=== PATIENT | female | born 1940 | race Hispanic/Latino ===

== ENCOUNTER 2018-02-13 13:01 | Emergency (ER) | payer MEDICARE ==
[~2018-02-13 13:01] MED LIST: ACET250T3 PO; AEC81 PO; BRINOS OS; DOXY100C2 PO; LISI2.5T2 PO; METH-370 PO; METO25TA6 PO; POTA20TA12 PO; SIMV20TA6 PO; UBID100C10 PO; XALA2.5OS OS
[2018-02-13] MEDS ORDERED: ACETAMINOPHEN-CODEINE 300/30MG TAB ONE (14:52)
[2018-02-13] MEDS ORDERED: LIDOCAINE HCL 2% 20ML ONE (15:57)
[2018-02-25] MEDS ORDERED: CALC-190 PO (12:00)
[2018-02-25] MEDS ORDERED: IBUP-2353 PO (12:00)
[2018-02-25] MEDS ORDERED: LISI2.5T2 PO (12:00)
[2018-02-25] MEDS ORDERED: METH-370 PO (12:02)
[2018-02-25] MEDS ORDERED: METO25TA6 PO (12:02)
[2018-02-25] MEDS ORDERED: ASPI-1181 PO (12:02)
[2018-02-25] MEDS ORDERED: SIMV20TA6 PO (12:02)
[2018-02-25] MEDS ORDERED: XALA2.5OS OS (12:04)
[2018-02-25] MEDS ORDERED: UBID100C10 PO (12:04)
[2018-02-25] MEDS ORDERED: ACET-66 PO (12:04)
== END 2018-02-13 17:11 | disposition home or self-care (01) ==
LOC: EDH 13:01
DX: S62.101A Fracture of unspecified carpal bone, right wrist, initial encounter for closed fracture (principal); I10 Essential (primary) hypertension; E78.5 Hyperlipidemia, unspecified; W01.0XXA Fall on same level from slipping, tripping and stumbling without subsequent striking against object, initial encounter; Y93.89 Activity, other specified; Y92.098 Other place in other non-institutional residence as the place of occurrence of the external cause; Y99.8 Other external cause status
CPT/HCPCS: 25605; 73110 ×2; 99284; J3490

== ENCOUNTER 2018-09-20 00:04 | Emergency (ER) | payer MEDICARE ==
[~2018-09-20 00:04] MED LIST changes: +ACET-66 PO; -ACET250T3 PO; -AEC81 PO; +ASPI-1181 PO; -BRINOS OS; +CALC-190 PO; -DOXY100C2 PO; -POTA20TA12 PO
[2018-09-20] MEDS ORDERED: METOCLOPRAMIDE 10 MG/2 ML VIAL ONE (00:59)
[2018-09-20 01:18] LABS: BASOPHILS % (AUTO) 0.9 % (0.0-5.0); EOSINOPHILS % (AUTO) 4.4 % (0.0-8.0); HEMATOCRIT 43.5 % (36-48); LYMPHOCYTES % (AUTO) 25.5 % (21.0-51.0); MEAN CORPUSCULAR HEMOGLOBIN 29.6 pg (27.0-33.0); MEAN CORPUSCULAR HGB CONC 34.1 g/dL (32.0-36.0); MEAN CORPUSCULAR VOLUME 86.7 fL (79-99); MONOCYTES % (AUTO) 7.6 % (3.0-13.0); NEUTROPHILS % (AUTO) 61.6 % (40.0-77.0); NUCLEATED RED BLOOD CELLS 0.2 % (0.0-0.19); PLATELET COUNT (AUTO) 146 K/uL (130-400); RED BLOOD CELL COUNT(AUTO) 5.02 MIL/uL (4.00-5.50); RED CELL DISTRIBUTION WIDTH 14.2 % (11.0-15.5); WHITE BLOOD COUNT (AUTO) 5.7 K/uL (4.8-10.8)
[2018-09-20 01:29] LABS: CREATININE 0.8 mg/dL (0.5-1.5); POTASSIUM 3.7 mmol/L (3.5-5.1)
[2018-09-20 01:34] LABS: ALBUMIN 3.7 g/dL (3.5-5.0); BILIRUBIN,TOTAL 0.5 mg/dL (0.2-1.0); INR 1.02 (0.85-1.15); PROTHROMBIN TIME 10.7 SEC (9.6-11.6); TOTAL PROTEIN, SERUM 6.6 g/dL (6.0-8.3)
[2018-09-20 02:36] LABS: BILIRUBIN,URINE Negative (NEGATIVE); COLOR,URINE Yellow (YELLOW); GLUCOSE, URINE (UA) Negative (NEGATIVE); KETONES,URINE Negative (NEGATIVE); LEUKOCYTE ESTERASE ,URINE Moderate (NEGATIVE); NITRATE,URINE Negative (NEGATIVE); OCCULT BLOOD,URINE Negative (NEGATIVE); PH,URINE 6.5 (5.0-8.0); PROTEIN,URINE Negative (NEGATIVE)
[2018-09-20 02:37] LABS: APPEARANCE,URINE CLEAR (CLEAR)
[2018-09-20 02:43] LABS: BACTERIA,URINE None Seen /HPF (None Seen); RBC,URINE None Seen /HPF (0-1); SQUAMOUS EPITHELIAL CELL,UR Few /HPF (0-2); WBC,URINE 0-1 /HPF (0-1)
[2018-09-20] MEDS ORDERED: KETOROLAC TROMETHAMINE 15MG/ML ONE (03:16)
== END 2018-09-20 03:56 | disposition home or self-care (01) ==
LOC: EDH 00:04
DX: R51 Headache (principal); M62.838 Other muscle spasm; I10 Essential (primary) hypertension; E78.5 Hyperlipidemia, unspecified
CPT/HCPCS: 36415; 70450; 80053; 81001; 84484; 85025; 85610; 85730; 96374; 96375; 99284; J1885; J2765

== ENCOUNTER → 2019-03-05 | Outpatient (CLI) | payer MEDICARE | END | disposition home or self-care (01) | LOC: SHCH 09:38 | PROVIDERS: ATTEND Internal Medicine Cardiovascular Disease | DX: I08.0 Rheumatic disorders of both mitral and aortic valves (principal); I65.23 Occlusion and stenosis of bilateral carotid arteries; I10 Essential (primary) hypertension | CPT/HCPCS: 93306; 93880 ==

== ENCOUNTER → 2020-03-15 | Outpatient (CLI) | payer MEDICARE ==
[~2020-03-15] MED LIST changes: -ASPI-1181 PO; +ASPI-1443 PO; +SIMV-43 PO; -SIMV20TA6 PO
== END | disposition home or self-care (01) ==
LOC: SHCH 09:19
PROVIDERS: ATTEND Internal Medicine Cardiovascular Disease
DX: I25.10 Atherosclerotic heart disease of native coronary artery without angina pectoris (principal); I10 Essential (primary) hypertension
CPT/HCPCS: 93306; 93356

== ENCOUNTER → 2020-10-21 | Outpatient (CLI) | payer MEDICARE | END | disposition home or self-care (01) | LOC: SHCH 10:15 | PROVIDERS: ATTEND Internal Medicine Cardiovascular Disease | DX: I70.203 Unspecified atherosclerosis of native arteries of extremities, bilateral legs (principal) | CPT/HCPCS: 93925 ==

== ENCOUNTER → 2020-12-20 | Outpatient (CLI) | payer MEDICARE | END | disposition home or self-care (01) | LOC: SHCH 09:50 | PROVIDERS: ATTEND Internal Medicine Cardiovascular Disease | DX: I73.9 Peripheral vascular disease, unspecified (principal); I87.2 Venous insufficiency (chronic) (peripheral) | CPT/HCPCS: 93970 ==

== ENCOUNTER → 2021-08-15 | Outpatient (CLI) | payer MEDICARE ==
[~2021-08-15] MED LIST changes: +LISI2.5T13 PO; -LISI2.5T2 PO; -METH-370 PO; +METH-386 PO
== END | disposition home or self-care (01) ==
LOC: RAH 10:40
PROVIDERS: ATTEND Internal Medicine Gastroenterology
DX: K57.90 Diverticulosis of intestine, part unspecified, without perforation or abscess without bleeding (principal); D25.9 Leiomyoma of uterus, unspecified; I70.8 Atherosclerosis of other arteries; M47.815 Spondylosis without myelopathy or radiculopathy, thoracolumbar region; N85.2 Hypertrophy of uterus; N32.89 Other specified disorders of bladder; R63.4 Abnormal weight loss
CPT/HCPCS: 74176

== ENCOUNTER 2021-08-28 05:36 | Observation (INO) | payer MEDICARE ==
[2021-08-24 11:53] LABS: APPEARANCE,URINE Cloudy (CLEAR); BILIRUBIN,URINE Small (NEGATIVE); COLOR,URINE Dark Yellow (YELLOW); GLUCOSE, URINE (UA) Negative (NEGATIVE); KETONES,URINE Trace mg/dL (NEGATIVE); LEUKOCYTE ESTERASE ,URINE Small (NEGATIVE); NITRATE,URINE Negative (NEGATIVE); OCCULT BLOOD,URINE Negative (NEGATIVE); PROTEIN,URINE Trace mg/dL (NEGATIVE)
[2021-08-24 12:07] LABS: BACTERIA,URINE Rare /HPF (None Seen); RBC,URINE 0-1 /HPF (0-1); SQUAMOUS EPITHELIAL CELL,UR Rare /HPF (0-2); WBC,URINE 0-1 /HPF (0-1)
[2021-08-24 12:39] LABS: BASOPHILS % (AUTO) 0.8 % (0.0-5.0); EOSINOPHILS % (AUTO) 3.1 % (0.0-8.0); HEMATOCRIT 44.4 % (36-48); LYMPHOCYTES % (AUTO) 17.1 % (21.0-51.0); MEAN CORPUSCULAR HEMOGLOBIN 28.9 pg (27.0-33.0); MEAN CORPUSCULAR HGB CONC 32.4 g/dL (32.0-36.0); MONOCYTES % (AUTO) 7.8 % (3.0-13.0); PLATELET COUNT (AUTO) 181 K/uL (130-400); RED BLOOD CELL COUNT(AUTO) 4.99 MIL/uL (4.00-5.50); RED CELL DISTRIBUTION WIDTH 14.2 % (11.0-15.5); WHITE BLOOD COUNT (AUTO) 5.9 K/uL (4.8-10.8)
[2021-08-24 12:57] LABS: INR 1.1 (0.85-1.15); PROTHROMBIN TIME 11.9 SEC (9.6-11.6)
[2021-08-24 12:58] LABS: PARTIAL THROMBOPLASTIN TIME 27.7 SEC (26.3-35.5)
[2021-08-24 13:00] LABS: CREATININE 1.1 mg/dL (0.5-1.5)
[2021-08-24 14:16] VITALS: BP 119/55
[~2021-08-28] VITALS: Ht 160 cm; Wt 68.2 kg
[2021-08-28] VITALS (13 sets, daily range): BP systolic 113–166; BP diastolic 52–83
[~2021-08-28 05:36] MED LIST changes: -ACET-66 PO; -ASPI-1443 PO; -CALC-190 PO; +CLOP75TA32 PO; -UBID100C10 PO; -XALA2.5OS OS
[2021-08-28] MEDS ORDERED: 0.9%NACL 1000ML 1,000 ML IV ONE (06:08)
[2021-08-28] MEDS ORDERED: IOHEXOL-350 50ML VIAL IV ONE (07:17)
[2021-08-28] MEDS ORDERED: NITROGLYCERIN 2 MG VIAL IV ONE (07:17)
[2021-08-28] MEDS ORDERED: LIDOCAINE HCL 400MG/20ML VIAL ONE (07:17)
[2021-08-28] MEDS ORDERED: MEPERIDINE-PF 25 MG/ML SYG ONE ×2 (07:17→07:33)
[2021-08-28] MEDS ORDERED: SODIUM BICARB 50MEQ 50ML VIAL 50 ML ONE (07:17)
[2021-08-28] MEDS ORDERED: IOHEXOL 350 MG/ML 100ML INFUS..BTL IV ONE (07:17)
[2021-08-28] MEDS ORDERED: MIDAZOLAM HCL 1 MG/ML 2ML VIAL ONE ×2 (07:17→07:33)
[2021-08-28] MEDS ORDERED: HEPARIN 10,000 UNIT/10ML (1,000 UNIT/ML) VIAL ONE (07:17)
[2021-08-28] MEDS ORDERED: IOHEXOL-350 75 ML VIAL IV ONE (08:02)
[2021-08-28] MEDS ORDERED: ASPIRIN 325MG EC TAB PO ONE (08:21)
[2021-08-28] MEDS ORDERED: ACETAMINOPHEN 325 MG TAB PO PRN (09:00)
[2021-08-28] MEDS ORDERED: 0.9%NACL 1000ML 1,000 ML IV SCH (09:00)
[2021-08-28] MEDS ORDERED: ONDANSETRON 4MG INJ IVP PRN (09:00)
[2021-08-28] MEDS: METOPROLOL TARTRATE 25 MG TAB PO SCH (10:00)
[2021-08-28] MEDS: ASPIRIN 81MG CHEW TAB PO SCH (10:00)
[2021-08-28] MEDS: METHIMAZOLE 10 MG TAB PO SCH (10:00)
[2021-08-28] MEDS: LISINOPRIL 2.5 MG TABLET PO SCH (11:36)
[2021-08-28] MEDS: SIMVASTATIN 20 MG TABLET PO SCH ×2 (20:54→20:57)
[2021-08-28] MEDS ORDERED: CLOPIDOGREL 75MG TAB PO SCH (21:00)
[2021-08-29] VITALS: BP 154/75
[2021-08-29 04:00] VITALS: BP 161/77
[2021-08-29 04:10] LABS: HEMATOCRIT 39.2 % (36-48); MEAN CORPUSCULAR HEMOGLOBIN 28.9 pg (27.0-33.0); MEAN CORPUSCULAR HGB CONC 33.4 g/dL (32.0-36.0); MEAN CORPUSCULAR VOLUME 86.3 fL (79-99); RED BLOOD CELL COUNT(AUTO) 4.54 MIL/uL (4.00-5.50); WHITE BLOOD COUNT (AUTO) 3.9 K/uL (4.8-10.8)
[2021-08-29 04:23] LABS: CREATININE 0.8 mg/dL (0.5-1.5); POTASSIUM 3.4 mmol/L (3.5-5.1)
[2021-08-29 07:20] VITALS: BP 144/76
[2021-08-29] MEDS: METOPROLOL TARTRATE 25 MG TAB PO SCH (08:17)
[2021-08-29] MEDS: ASPIRIN 81MG CHEW TAB PO SCH (08:17)
[2021-08-29 11:20] VITALS: BP 140/86
[2021-08-29] MEDS ORDERED: AEC81 PO (11:47)
[2021-08-29] MEDS: METHIMAZOLE 10 MG TAB PO SCH (12:16)
[2021-08-29] MEDS: LISINOPRIL 2.5 MG TABLET PO SCH (12:17)
== END 2021-08-29 13:25 | disposition home or self-care (01) ==
LOC: DAH 05:36 → DAHIP 05:37 → DAH 05:37 → 4BH 09:00
PROVIDERS: ADMIT Internal Medicine; ATTEND Internal Medicine
DX: I25.119 Atherosclerotic heart disease of native coronary artery with unspecified angina pectoris (principal); I10 Essential (primary) hypertension; E78.5 Hyperlipidemia, unspecified; E03.9 Hypothyroidism, unspecified; I87.2 Venous insufficiency (chronic) (peripheral); Z79.899 Other long term (current) drug therapy
CPT/HCPCS: 36415 ×2; 71045; 80048 ×2; 80061; 81001; 85025; 85027; 85610; 85730; 93005; 93458; A4215; A4216; A4221; A4222; A4223 ×3; A4606; A4663; C1760; C1769; C1874; C1887; C1894; C9600; G0378 ×28; J1644 ×2; J2175 ×2; J2250 ×2; J3490 ×3; J7030; Q9965; Q9967 ×3; 99156; 99157

== ENCOUNTER → 2022-02-21 | Outpatient (CLI) | payer MEDICARE ==
[~2022-02-21] MED LIST changes: +AEC81 PO
== END | disposition home or self-care (01) ==
LOC: SHCH 08:29
PROVIDERS: ATTEND Internal Medicine Cardiovascular Disease
DX: I70.0 Atherosclerosis of aorta (principal); I73.9 Peripheral vascular disease, unspecified
CPT/HCPCS: 93978